=== PATIENT | male | born 1965 | race Caucasian/White ===

== ENCOUNTER 2024-07-03 16:23 | Emergency (ER) | payer BC, SELFPAY ==
[2024-07-03 16:30] VITALS: BP 133/64
[2024-07-03 17:32] VITALS: BP 155/76
[2024-07-03 18:12] LABS: % Basophils 0.9 % (0-2); % Eosinophils 5.5 % (0-6); % Immature Granulocytes 0.1 % (0-0.5); % Lymphocytes 32.2 % (20.5-51.1); % Monocytes 7.4 % (1.7-9.3); % Neutrophils 53.9 % (42.2-75.2); Absolute Basophils 0.1 10^3/uL (0-0.2); Absolute Eosinophils 0.4 10^3/uL (0-0.7); Absolute Lymphocytes 2.2 10^3/uL (1.2-3.4); Absolute Monocytes 0.5 10^3/uL (0.1-0.6); Absolute Neutrophils 3.7 10^3/uL (1.4-6.5); Hemoglobin 16.5 g/dL (13.0-18.0); Mean Corp Hgb Conc. 37.5 g/dL (33.0-37.0); Mean Corpuscular Hgb 32.5 pg (27.0-31.0); Mean Corpuscular Volume 86.6 fL (80.0-94.0); Mean Platelet Volume 9.7 fL (7.4-10.4); Nucleated Red Blood Cells % 0 % (-); Platelet Count 142 10^3/uL (130-400); Red Blood Cell Count 5.08 10^6/uL (4.70-6.10); Red Cell Dist. Width 12.2 % (11.5-14.5); White Blood Cell Count 6.9 10^3/uL (4.8-10.8)
[2024-07-03 18:19] LABS: ALT (SGPT) 27 U/L (0-50); AST (SGOT) 32 U/L (17-59); Albumin 4.6 g/dl (3.5-5.0); Alkaline Phosphatase 78 U/L (38-126); Blood Urea Nitrogen 14 mg/dl (9-20); Calcium 9.6 mg/dl (8.4-10.2); Carbon Dioxide 24 mmol/L (22-30); Chloride 106 mmol/L (98-107); Glucose 95 mg/dl (70-99); Sodium 137 mmol/L (135-145); Total Protein 7.3 g/dl (6.3-8.2); eGFR > 60.00
[2024-07-03 18:31] LABS: NT-proBNP < 20.0 pg/ml; Troponin I < 0.012 ng/ml
--- NOTE | 2024-07-03 19:00 | ED.GENMED ---
History of Present Illness
General
Chief Complaint: Blood Pressure Problem
Source: patient
Exam Limitations: none
Time Seen by Provider: 07/03/24 17:32
Nursing documentation reviewed up to this point in time: agreed with
History of Present Illness
History of Present Illness:
58-year-old male past medical history of previous history of A-fib, hypertension mitral valve prolapse presenting to the emergency department today with concerns of elevated blood pressure at home. He claims that he checks this every morning and
this afternoon checked it and it was 175/90. Denies specific symptoms chest pain shortness of breath nausea vomiting numbness weakness.
Past History
Past History
ED Past Medical History: Arrthythmia (Paroxysmal A. fib), HTN and Other (Rosacea, eczema)
Social History
Tobacco: Non-smoker
Alcohol: Occasional
Drug: None
Family History
Family History: Diabetes
Review of Systems
Review of Systems
Allergies reviewed?: Yes
All Other Systems: ROS reviewed and negative except as documented in HPI and ROS
Phy Exam
Physical Exam
Physical Exam:
GENERAL: Alert , in no apparent distress
EYE: pupils equal and reactive
NECK: Supple, no significant adenopathy.
ENT: o/p clr, mmm.
CARDIAC: Systolic murmur regular rate and rhythm .
LUNGS: Clear breath sounds bilaterally, no acute respiratory distress, no wheezes/rales/rhonchi
ABDOMEN: Soft, without focal tenderness, no r/g, no cvat
NEUROLOGICAL: Alert and oriented, no focal neuro deficits
SKIN: Warm and dry, skin intact.
MUSCULOSKELETAL: No edema, well perfused.
PSYCH: Normal and appropriate interaction.
Course
Orders/Labs/Results
Orders:
Orders
07/03/24 17:45
Electrocardiogram (*1) Stat
Reason for Study: Other
Other Reason for Exam: chest pain
EKG- Treatment ONCE
07/03/24 17:57
Complete Blood Count/With Diff Urgent
Comprehensive Metabolic Panel Urgent
Magnesium Urgent
NT-proBNP Urgent
Troponin I Urgent
Abnormal Lab Results
07/03/24
17:57
MCH 32.5 H pg
(27.0-31.0)
MCHC 37.5 H g/dL
(33.0-37.0)
07/03/24 17:57
07/03/24 17:57
Vital Signs
Initial and Last Documented VS:
Initial Vital Signs
Temp Pulse Resp BP Pulse Ox
97.9 F 51 16 133/64 99
07/03/24 16:30 07/03/24 16:30 07/03/24 16:30 07/03/24 16:30 07/03/24 16:30
Last Documented Vital Signs
Temp Pulse Resp BP Pulse Ox
97.9 F 51 16 155/76 99
07/03/24 16:30 07/03/24 16:30 07/03/24 16:30 07/03/24 17:32 07/03/24 16:30
MDM/Problems Addressed
MDM/Problems Addressed:
58-year-old male presenting to the emergency department today with concerns of elevated blood pressure at home. Blood pressure here initially 130s over 60s then 150s over 70s. Asymptomatic here. Declined have some intermittent palpitations over
the past few days. EKG without emergent findings labs unremarkable no emergent pathology evident here today. Advised for close outpatient follow-up with cardiology. Return precautions given. Concerning the patient's blood pressure was mildly
elevated here and also was on blood pressure medication in the past. He was given a low dose of olmesartan to take and will follow-up closely.
*Critical Care Note
Total Time (30-74mins, 75-104mins- exclusive of procedures): Not Applicable
ED Attending Note
-
Portions of this chart may have been created with voice recognition software.� Occasional wrong word or��sound alike� substitutions may have occurred due to the inherent limitations of voice recognition software.
Discharge Plan
Departure
Patient Disposition: Home (Routine Discharge)
Date of Disposition: 07/03/24
Time of Disposition: 19:02
Patient with high blood pressure during this ER visit?: Yes
Condition: Good
Covid-19: Not Applicable
Discharge Problem:
High blood pressure
Instructions: Chest Pain DCA Follow Up, BLOOD PRESSURE
Prescriptions:
New
olmesartan 20 mg tablet
20 mg PO DAILY Qty: 14 0RF
No Action
olmesartan [Benicar] 40 MG tablet
40 mg PO DAILY
Minocycline
1 tab PO DAILY
Patient Comments:
DOSE UNKNOWN
aspirin 81 MG tablet,delayed release (DR/EC)
81 mg PO Q48H
Diflorasone Diacetate
1 applic topical BID
Prednisone
5 tab PO .TAPERING
Patient Comments:
12 DAY COARSE AND 'HAVE 4 DAYS LEFT'
STATES TOOK 3 TAB AM, 2 TAB PM TODAY
Referrals:
Go Menendez MD [Family Provider] -
Activity Restrictions/Additional Instructions:
You came to the emergency department today with concerns of elevated blood pressure. Here it was slightly elevated. You were started on the medication that you have taken in the past. Please take this once daily and follow-up closely with
cardiology and your primary care doctor. Return for any worsening, new or concerning symptoms.
Interventions
Interventions:
*Risk Screen - Suicide Last Done: 07/03/24 17:33
*Neglect/Abuse Screening Last Done: 07/03/24 17:33
*ED COVID-19 Vaccine History Last Done: 07/03/24 16:30
ED- Cardiac Assessment Last Done: 07/03/24 17:33
ED- Neurological Assessment Last Done: 07/03/24 17:33
ED- Pulmonary Assessment Last Done: 07/03/24 17:33
Discharge Date and Time
Print Language: LAO
== END 2024-07-03 19:34 | disposition home or self-care (01) ==
LOC: EMR 16:23
PROVIDERS: Physician Assistant; EMERGENCY PHYSICIAN Emergency Medicine; FAMILY PHYSICIAN Family Medicine
DX: I10 Essential (primary) hypertension (principal); I48.0 Paroxysmal atrial fibrillation
CPT/HCPCS: 99284; 80053; 83735; 83880; 84484; 85025; 93005

== ENCOUNTER → 2024-09-14 08:15 | Outpatient (REF) | payer BC, SELFPAY | LOC: HWRCS 08:15 | PROVIDERS: ATTENDING PHYSICIAN Internal Medicine Interventional Cardiology; FAMILY PHYSICIAN Family Medicine | DX: I34.1 Nonrheumatic mitral (valve) prolapse (principal); I34.0 Nonrheumatic mitral (valve) insufficiency; I35.8 Other nonrheumatic aortic valve disorders | CPT/HCPCS: 93306 ==

== ENCOUNTER → 2025-02-25 11:09 | Outpatient (REF) | payer BC, SELFPAY | LOC: HWRCS 11:09 | PROVIDERS: ATTENDING PHYSICIAN Internal Medicine Interventional Cardiology; FAMILY PHYSICIAN Family Medicine | DX: I34.1 Nonrheumatic mitral (valve) prolapse (principal) | CPT/HCPCS: 93306 ==

== ENCOUNTER 2025-04-23 08:54 | Day surgery (SDC) | payer BC, SELFPAY | END 2025-04-23 11:00 | disposition home or self-care (01) | LOC: CATH 08:54 | PROVIDERS: ATTENDING PHYSICIAN Internal Medicine Cardiovascular Disease; FAMILY PHYSICIAN Family Medicine; OTHER PHYSICIAN Internal Medicine Interventional Cardiology | DX: I08.3 Combined rheumatic disorders of mitral, aortic and tricuspid valves (principal); I08.8 Other rheumatic multiple valve diseases; Z79.82 Long term (current) use of aspirin; Z79.899 Other long term (current) drug therapy; I10 Essential (primary) hypertension | CPT/HCPCS: 93312; 93320; 93325 ==